=== PATIENT | male | born 1990 | race Caucasian/White ===

== ENCOUNTER 2018-05-05 18:18 | Emergency (ER) | payer SELFPAY ==
[~2018-05-05] VITALS: Ht 188 cm; Wt 70.5 kg
[2018-05-05 18:21] VITALS: BP 145/85; TEMP 97.7
[2018-05-05] MEDS ORDERED: NORCO 325 MG-51 TAB PO (20:11)
[2018-05-05] MEDS ORDERED: AMOXICILLIN 50500 MG PO (20:11)
[2018-05-05 20:28] VITALS: PULSE 80
== END 2018-05-05 20:29 | disposition home or self-care (01) ==
LOC: COL.ER 18:18
DX: K02.9 Dental caries, unspecified (principal); F17.210 Nicotine dependence, cigarettes, uncomplicated